=== PATIENT | male | born 1985 | race Caucasian/White ===

== ENCOUNTER 2017-01-19 16:51 | Emergency (ER) | payer SELFPAY | END 2017-01-19 18:45 | disposition home or self-care (01) | LOC: D.ER 16:51 | DX: L02.413 Cutaneous abscess of right upper limb (principal); F17.200 Nicotine dependence, unspecified, uncomplicated; E11.9 Type 2 diabetes mellitus without complications ==

== ENCOUNTER 2017-01-23 20:01 | Emergency (ER) | payer SELFPAY | END 2017-01-23 22:47 | disposition home or self-care (01) | LOC: D.ER 20:01 | DX: L02.413 Cutaneous abscess of right upper limb (principal) ==

== ENCOUNTER 2017-01-27 10:38 | Emergency (ER) | payer SELFPAY | END 2017-01-27 12:00 | disposition home or self-care (01) | LOC: D.ER 10:38 | DX: L02.91 Cutaneous abscess, unspecified (principal); E11.9 Type 2 diabetes mellitus without complications ==

== ENCOUNTER 2017-01-31 06:05 | Emergency (ER) | payer SELFPAY ==
[2017-01-31 07:26] LABS: APPEARANCE CLEAR (CLEAR); BACTERIA FEW /hpf (NONE SEEN); BILIRUBIN NEGATIVE (NEGATIVE); COLOR YELLOW (YELLOW); EPITHELIAL CELLS 0-5 /hpf (0-5); GLUCOSE 1000 mg/dL (NEGATIVE); KETONE NEGATIVE (NEGATIVE); LEUKOCYTE ESTERASE TRACE (NEGATIVE); NITRITE NEGATIVE (NEGATIVE); PROTEIN NEGATIVE (NEGATIVE); RED CELLS - URINE 0-5 /hpf (0-5); SPERMATOZOA RARE /hpf (NONE SEEN); UROBILINOGEN NORMAL (NORMAL)
== END 2017-01-31 07:43 | disposition home or self-care (01) ==
LOC: D.ER 06:05
PROVIDERS: Emergency Medicine
DX: R30.0 Dysuria (principal); N39.0 Urinary tract infection, site not specified; E11.9 Type 2 diabetes mellitus without complications

== ENCOUNTER 2017-02-22 16:27 | Emergency (ER) | payer SELFPAY | END 2017-02-22 18:06 | disposition home or self-care (01) | LOC: D.ER 16:27 | DX: N39.0 Urinary tract infection, site not specified (principal); Z72.0 Tobacco use; E11.9 Type 2 diabetes mellitus without complications ==

== ENCOUNTER 2017-02-28 16:53 | Emergency (ER) | payer SELFPAY | END 2017-02-28 19:40 | disposition left against medical advice (07) | LOC: D.ER 16:53 | DX: R30.0 Dysuria (principal); E11.9 Type 2 diabetes mellitus without complications ==

== ENCOUNTER 2017-03-01 14:47 | Emergency (ER) | payer SELFPAY ==
[2017-03-01 16:28] LABS: APPEARANCE CLOUDY (CLEAR); SPECIFIC GRAVITY 1.015 (1.005-1.020)
[2017-03-01 16:29] LABS: COLOR ORANGE (YELLOW)
[2017-03-01 16:31] LABS: BACTERIA MODERATE /hpf (NONE SEEN); EPITHELIAL CELLS 0-5 /hpf (0-5); RED CELLS - URINE 0-5 /hpf (0-5); WHITE CELLS - URINE >50 /hpf (0-5)
== END 2017-03-01 17:06 | disposition home or self-care (01) ==
LOC: D.ER 14:47
PROVIDERS: Family Medicine
DX: N39.0 Urinary tract infection, site not specified (principal); E11.9 Type 2 diabetes mellitus without complications; F17.200 Nicotine dependence, unspecified, uncomplicated

== ENCOUNTER 2017-04-10 03:23 | Emergency (ER) | payer MEDICAID | END 2017-04-10 04:32 | disposition home or self-care (01) | LOC: D.ER 03:23 | DX: M79.605 Pain in left leg (principal); M79.604 Pain in right leg; F17.200 Nicotine dependence, unspecified, uncomplicated ==